=== PATIENT | female | born 1990 | race American Indian/Alaskan Native ===

== ENCOUNTER 2020-10-11 22:19 | Emergency (ER) | payer SELFPAY ==
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
[2020-10-11 23:56] VITALS: BP 121/53
== END 2020-10-11 23:52 | disposition home or self-care (01) ==
LOC: ED 22:19
DX: S76.012A Strain of muscle, fascia and tendon of left hip, initial encounter (principal); S16.1XXA Strain of muscle, fascia and tendon at neck level, initial encounter; D64.9 Anemia, unspecified; Z98.890 Other specified postprocedural states; Z79.899 Other long term (current) drug therapy; V49.59XA Passenger injured in collision with other motor vehicles in traffic accident, initial encounter; Y92.410 Unspecified street and highway as the place of occurrence of the external cause; Y93.89 Activity, other specified; Y99.8 Other external cause status
CPT/HCPCS: 99283